=== PATIENT | male | born 1965 | race Caucasian/White ===

== ENCOUNTER 2016-09-05 18:07 | Emergency (ER) | payer OTHER ==
[~2016-09-05] VITALS: Ht 177.8 cm; Wt 99.0 kg
[2016-09-05 18:11] VITALS: BP 127/85; PULSE 83; RESP 16; O2SAT 97
--- NOTE | 2016-09-05 18:41 | ED.REPORT ---
HPI-Chest Pain 40 and Over Date of Service Sep 05, 2016 ED Provider: Oni Alvarez DO Patient is a 51 year old male with a history of hypertension, arthritis and a torn rotator cuff who presents to the ED complaining of chest pain onset two days ago. Two days ago he had a brief episode of palpitations that lasted 2-3 minutes, which occurred 2 days ago and subsequently felt weak in the knees the next morning. Since then he has had pinpoint focal left chest wall tenderness that is not associated or worsened with exertion. He denies shortness of breath or diaphoresis. Patient rates his pain as a 4/10 and that the pain is exacerbated by movement and palpation. The patient also reports that two weeks ago his chest pain was enough to make him need a break from work. Nursing Notes Stated Complaint: CHEST PAIN Chief Complaint: Chest Pain Nursing Notes Reviewed: Yes Allergies: Coded Allergies: No Known Allergies (Unverified , 09/05/16) General Time Seen by MD: 18:41 Chief Complaint Chest pain Hx Obtained From: Patient Arrived By: Walk-in Sudden in Onset?: Yes Onset Occurred: 2 days ago Location: : Chest left Radiation: : Does not radiate Recent Healthcare: No recent doctor visit, No recent hospitalization Similar Sx Previous: No Past Medical History Past Medical History arthritis torn rotator cuff possibly hypertensive Past Surgical History knee surgery Smoking History Current Every Day Smoker Social History Alcohol Use: "Social" Drug Use: Denies drug use, THC Other Social History: Good social support, Ambulatory Status Independent Review of Systems Respiratory: Denies: Non-productive cough, Shortness of breath Cardiovascular: Reports: Chest pain, Denies: Dyspnea on exertion Complete sys rev & neg: except as marked. Physical Exam Initial Vital Signs Vital Signs (First) Date Time Temp Pulse Resp B/P Pulse Ox O2 Delivery O2 Flow Rate FiO2 09/05/16 18:11 36.8 83 16 127/85 97 Room Air Initial VS: Reviewed General/Constitutional: Awake, Alert, No acute distress Appearance / Presentation: Positive: Obese Respiratory / Chest: Atraumatic, Breath sounds NL, Breath sounds = bilat, No respiratory distress Cardiovascular: Heart rate NL, Regular rhythm, Heart sounds NL Abdomen: Atraumatic, Soft, Non-tender Neck: Atraumatic, Supple, Full range of motion Back: Atraumatic, Full range of motion Lower Extremity / Pelvis / MS: Atraumatic, Full range of motion Skin: Atraumatic, Color NL, No rash, Warm, Dry Neurologic: Oriented X3, Speech NL, No motor deficits, No sensory deficits Psychiatric: Affect NL, Mood NL Head / Eyes: Atraumatic, Normocephalic, PERRL, EOMI ENT: Atraumatic, Airway patent, Mucous membranes moist Upper Extremity / MS: Atraumatic, Neurologic intact, Vascular intact pain with movement of the left arm Interpretation & Diagnostics Lab Results Interpretation Result Diagram: 09/05/164 09/05/164 Test 09/05/16 18:14 White Blood Count 7.6th/mm3 (3.8-10.1) Red Blood Count 5.18mil/mm3 (4.40-5.80) Hemoglobin 15.7g/dL (13.8-17.2) Hematocrit 46.0% (41.0-50.0) Mean Corpuscular Volume 88.8fL (81-100) Mean Corpuscular Hemoglobin 30.3pg (27.0-35.0) Mean Corpuscular Hemoglobin Concent 34.1% (32.0-37.0) Red Cell Distribution Width 13.3% (12.3-15.4) Platelet Count 288bil/L (150-400) Neutrophils (%) (Auto) 57.2% (40-74) Lymphocytes (%) (Auto) 30.6% (14-46) Monocytes (%) (Auto) 9.3% (4-12) Eosinophils (%) (Auto) 2.2% (0-5) Basophils (%) (Auto) 0.4% (0-3) D-Dimer < 0.50mg/L FEU (<0.50) Sodium Level 140mEq/L (134-144) Potassium Level 3.8mEq/L (3.5-5.2) Chloride Level 101mEq/L (97-108) Carbon Dioxide Level 24mmol/L (18-29) Blood Urea Nitrogen 16mg/dL (6-24) Creatinine 0.95mg/dL (0.76-1.27) Estimat Glomerular Filtration Rate 89mL/min (>59) Glucose Level 103mg/dL (60-99) Calcium Level 9.8mg/dL (8.5-10.1) Magnesium Level 2.2mg/dL (1.6-2.6) Total Bilirubin 0.3mg/dL (0.0-1.2) Aspartate Amino Transf (AST/SGOT) 25U/L (0-50) Alanine Aminotransferase (ALT/SGPT) 34U/L (0-44) Alkaline Phosphatase 47U/L (25-150) Troponin T < 0.010ug/L (0.0-0.011) Pro-B-Type Natriuretic Peptide 36.21pg/mL (0-121) Total Protein 7.4g/dL (6.4-8.4) Albumin 4.4g/dL (3.4-5.0) X-Ray Chest Interpretation Chest Xray Interpretation: IMPRESSION: No acute process. Dictated by: Madelin Bonilla M.D. on 09/05/2016 at 18:57 Approved by: Mdaelin Bonilla M.D. on 09/05/2016 at 18:57 View: Portable, 1 view Interpretation / Wet Read by: Interpret - Radiologist Re-Eval/Medical Decision Med Decision/Clinical Course Overall concerning episode several days ago labs today are unremarkable, patient seems to have pinpoint focal chest pain at this point on arrival which has now resolved. Concerned patient could have some amount of heart disease though he is asymptomatic and wants to go home. Recommend he start aspirin follow-up with the primary care for outpatient cardiac testing. Strict return precautions given. Source of Hx: Old records Time of Eval: 20:41 Patient Status: Condition improved Re-Evaluation/Progress Note: Discussed x-ray results and plan for discharge. The patient understands and agrees to the plan for discharge. All questions were addressed. Discharge & Departure Primary Impression: Chest pain Disposition: Home Discharge Condition All VS Reviewed: Yes Condition: Stable Patient Instructions: Chest Pain (ED) Referrals: NOPCP (PCP) Scribe Attestation Portions of this note were transcribed by Yessi Ceballos. I, Dr. Alvarez personally performed the history, physical exam and medical decision-making; I reviewed and confirmed the accuracy of the information in the transcribed note. Signed by: Cuauhtemoc Haywood, 09/05/16 and 2041 Oni Alvarez DO Sep 05, 2016 18:41 Kaitlynn Ceballos Sep 05, 2016 18:51
[2016-09-05 18:48] LABS: BASOPHILS % (AUTO) 0.4 % (0-3); EOSINOPHILS % (AUTO) 2.2 % (0-5); MONOCYTES % (AUTO) 9.3 % (4-12); Mean Corpuscular Hemoglobin 30.3 pg (27.0-35.0); Mean Corpuscular Volume 88.8 fL (81-100); NEUTROPHILS % (AUTO) 57.2 % (40-74); Platelet Count 288 bil/L (150-400)
[2016-09-05] MEDS ORDERED: Ondansetron 2 mg/mL 2 mL Inj IVPUSH ONE (18:50)
--- NOTE | 2016-09-05 18:59 | DRSVH ---
PROCEDURE: X-RAY CHEST, TWO VIEWS ([id number]) INDICATIONS: chest pain TECHNIQUE: 2 views of the chest were acquired. COMPARISON: None. FINDINGS: Surgical changes and devices: None. Lungs and pleura: No pleural effusions or pneumothorax. Lungs are clear. Mediastinum: Mediastinal contours are normal. Heart size is normal. Bones and chest wall: No suspicious bony abnormalities. Soft tissues appear unremarkable. IMPRESSION: No acute process. Dictated by: Madelin Bonilla M.D. on 09/05/2016 at 18:57 Approved by: Madelin Bonilla M.D. on 09/05/2016 at 18:57
[2016-09-05 19:00] VITALS: BP 131/69; PULSE 78; RESP 20; O2SAT 97
[2016-09-05 19:16] LABS: TROPONIN T < 0.010 ug/L (0.0-0.011)
[2016-09-05 19:21] LABS: Magnesium 2.2 mg/dL (1.6-2.6)
[2016-09-05 21:03] VITALS: BP 115/80; PULSE 76; RESP 16; O2SAT 96
== END 2016-09-05 21:04 | disposition home or self-care (01) ==
LOC: SED 18:07
DX: R07.89 Other chest pain (principal); I10 Essential (primary) hypertension; F17.200 Nicotine dependence, unspecified, uncomplicated